=== PATIENT | female | born 1995 | race Caucasian/White ===

== ENCOUNTER 2025-02-05 17:18 | Day surgery (SDC) | payer BC ==
[2025-02-05 18:58] VITALS: BMI 33.7
[2025-02-05] MEDS ORDERED: hydrALAZINE 20 MG/ML VIAL SLOW IVP PRN (19:05)
[2025-02-05 20:02] LABS: Glucose, Urine (Dipstick) Normal (Negative); Leukocyte 25 (Negative); Protein, Urine (Dipstick) 30 mg/dl (Neg-Trace); Specific Gravity, Urine 1.015 (1.005-1.030)
[2025-02-05 20:12] LABS: Cocaine Metabolite Screen Negative (Negative); THC/Cannabinoid Screen Negative (Negative); Tricyclic Screen Negative (Negative)
[2025-02-05] MEDS: Cyclobenzaprine 10 MG TAB PO SCH (20:23)
[2025-02-05] MEDS: Acetaminophen 500 MG TAB PO SCH (20:23)
[2025-02-05] MEDS: Ondansetron PF 4 MG/2 ML Vial IVP SCH (20:23)
[2025-02-05 20:26] LABS: #Basophils 0.03 10x3/uL (0.0-0.2); #Eosinophils 0.06 10x3/uL (0.0-0.5); #Monocytes 0.74 10x3/uL (0.0-1.1); #Neutrophils 8.28 10x3/uL (1.5-8.4); %Basophils 0.3 % (0.0-2.0); %Eosinophils 0.5 % (0.0-6.0); %Lymphocytes 19.3 % (18.0-47.0); %Monocytes 6.5 % (0.0-10.0); %Neutrophils 73.1 % (40.0-75.0); Hematocrit 33.3 % (34.9-44.5); Hemoglobin 11.7 g/dL (12.0-15.5); Mean Corpuscular Hemoglobin 30.5 pg (27.0-33.0); Mean Corpuscular Volume 86.9 fL (81.6-98.3); Platelet Count 206 10x3/uL (150-450); Red Blood Cell (RBC) Count 3.83 10x6/uL (3.90-5.03); White Blood Cell (WBC) Count 11.33 10x3/uL (3.5-10.5)
[2025-02-05 20:32] LABS: ALT (SGPT) 13 U/L (Less than 34); AST (SGOT) 26 U/L (11-34); Albumin 3.1 g/dL (3.1-4.5); Alkaline Phosphatase 70 U/L (40-110); Anion Gap 12 mmol/L (10-20); BUN (Urea Nitrogen) 7 mg/dL (7.0-18.7); Bilirubin, Total 0.4 mg/dL (0.3-1.2); Calc. Creatinine Clearance 224 mL/min (70-130); Calcium 8.7 mg/dL (7.8-10.44); Carbon Dioxide 20 mmol/L (22-29); Chloride 106 mmol/L (98-107); Globulin 3.5 g/dL (2.4-3.5); Glucose 87 mg/dL (70-105); Potassium 3.4 mmol/L (3.5-5.1); Sodium 135 mmol/L (136-145)
[2025-02-05 21:33] LABS: RBC/HPF 0-3 HPF (0-3)
[2025-02-05 21:34] LABS: Bacteria/HPF 2+ HPF (None Seen); Mucous/LPF 3+ LPF (<2+)
[2025-02-05] MEDS: Lidocaine 2% Viscous Solution 10 ML, Aluminum & Magnesium Hydroxide 30 ML SSW SCH (23:08)
== END 2025-02-06 00:19 | disposition home or self-care (01) ==
LOC: CSHLD/OP 17:18
PROVIDERS: ATTEND Obstetrics & Gynecology
DX: O21.2 Late vomiting of pregnancy (principal); O24.415 Gestational diabetes mellitus in pregnancy, controlled by oral hypoglycemic drugs; O26.642 Intrahepatic cholestasis of pregnancy, second trimester; O34.219 Maternal care for unspecified type scar from previous cesarean delivery; O99.891 Other specified diseases and conditions complicating pregnancy; R10.13 Epigastric pain; R10.30 Lower abdominal pain, unspecified; Z3A.27 27 weeks gestation of pregnancy; Z79.899 Other long term (current) drug therapy
CPT/HCPCS: 36416; 76705; 80053; 80306; 81001; 83690; 85025; 96360; 96374; 96375; 99285; J0595